=== PATIENT | male | born 1965 | race Caucasian/White ===

== ENCOUNTER 2016-06-01 17:09 | Emergency (ER) | payer BC ==
[~2016-06-01] VITALS: Ht 177.8 cm; Wt 108.1 kg
[~2016-06-01 17:09] MED LIST: NORCO 5/3251 TABLET PO; PRILOSEC20 MG PO; ZOFRAN4 MG PO
[2016-06-01] MEDS ORDERED: ZANTAC75 M1 PO (17:31)
[2016-06-01 17:45] LABS: ADD MIUA? YES; BILIRUBIN NEGATIVE; BLOOD NEGATIVE; COLOR YELLOW ((YELLOW)); GLUCOSE (STRIP) NEGATIVE; KETONES NEGATIVE; LEUKOCYTES NEGATIVE; NITRITE NEGATIVE; PROTEIN (STRIP) NEGATIVE; UROBILINOGEN 0.2 MG/DL (0.2-1.0)
[2016-06-01 18:03] LABS: HEMATOCRIT 47.6 % (38.0-50.0); MCH 30.9 PG (29.0-34.0); MCHC 36.6 G/DL (30.0-36.0); MCV 84.4 FL (86-99); MEAN PLAT.VOLUME 10.1 uM^3 (9.0-12.4); PLATELET COUNT 209 K/uL (156-360); RBC DIS.WIDTH-CV 11.7 % (11.8-14.6); RBC DIS.WIDTH-SD 35.3 % (39-53); RED BLOOD COUNT 5.64 M/uL (4.00-5.50); WHITE BLOOD COUNT 10.6 K/uL (4.1-10.2)
[2016-06-01 18:06] LABS: AMORPHOUS PHOSPHATE CRYSTALS 4+; BACTERIA NONE SEEN /HPF; CASTS NONE SEEN /LPF; CRYSTALS PRESENT; EPITHELIAL CELLS NONE SEEN /HPF; MUCUS NONE SEEN /LPF; RED BLOOD CELLS NONE SEEN /HPF (0-5); WHITE BLOOD CELLS NONE SEEN /HPF (0-5)
[2016-06-01 18:11] LABS: CHLORIDE 105 mEq/L (99-109); POTASSIUM 3.8 mEq/L (3.7-5.4); SODIUM 143 mEq/L (136-147)
[2016-06-01 18:14] LABS: GLUCOSE 128 mg/dL (70-99)
[2016-06-01 18:15] LABS: ANION GAP 11 MEQ/L (2-14)
[2016-06-01 18:16] LABS: TOTAL BILIRUBIN 2.3 mg/dL (0.0-1.0)
[2016-06-01 18:17] LABS: ALKALINE PHOSPHATASE 53 IU/L (3-129); GFR ESTIMATE (CALCULATED) > 59 mL/min/
[2016-06-01 18:18] LABS: UREA NITROGEN (BUN) 17 mg/dL (9-23)
[2016-06-01 18:21] LABS: LIPASE 25 U/L (1.0-51.0)
[2016-06-01 18:46] LABS: DIRECT BILIRUBIN 0.6 mg/dL (0.0-0.3)
[2016-06-01] MEDS ORDERED: PERCOCET 5/31 TABLET PO (19:26)
[2016-06-01] MEDS ORDERED: ZOFRAN ODT4 MG PO (19:26)
[2016-06-01 19:55] VITALS: BP 121/85
== END 2016-06-01 20:04 | disposition home or self-care (01) ==
LOC: EME 17:09 → RME 17:09
PROVIDERS: Physician Assistant
DX: K80.20 Calculus of gallbladder without cholecystitis without obstruction (principal)
CPT/HCPCS: 74022; 76705; 80053; 81003; 82248; 83690; 85027; 99281; 99284; J1885; J3010

== ENCOUNTER 2016-06-26 11:54 | Day surgery (SDC) | payer BC ==
[~2016-06-26] VITALS: Ht 177.8 cm; Wt 100.0 kg
[~2016-06-26 11:54] MED LIST changes: +PERCOCET 5/31 TABLET PO; +ZANTAC150 MG PO; +ZANTAC75 M1 PO; +ZOFRAN ODT4 MG PO
[2016-06-26 12:34] VITALS: BP 126/78
[2016-06-26] MEDS ORDERED: PERCOCET 5/31 TABLET PO (13:39)
[2016-06-26] MEDS ORDERED: NORCO 5/3251 TABLET PO (16:04)
[2016-06-26 18:00] VITALS: BP 112/72
[2016-06-26 20:12] VITALS: BP 128/74
[2016-06-26 23:20] VITALS: BP 101/58
[2016-06-27 04:11] VITALS: BP 139/80
[2016-06-27 07:40] VITALS: BP 94/78
[2016-06-27 10:57] VITALS: BP 103/63
== END 2016-06-27 11:12 | disposition home or self-care (01) ==
LOC: SDC 11:54 → 2SOUTH 16:22 → 2EAST 17:52
DX: K80.10 Calculus of gallbladder with chronic cholecystitis without obstruction (principal); R74.8 Abnormal levels of other serum enzymes; K66.0 Peritoneal adhesions (postprocedural) (postinfection); K21.9 Gastro-esophageal reflux disease without esophagitis; J30.9 Allergic rhinitis, unspecified
CPT/HCPCS: 88304; G0378; J0330; J0690; J1100; J1170; J2250; J2405; J2710; J3010; J7120